=== PATIENT | male | born 1970 | race Caucasian/White ===

== ENCOUNTER → 2020-03-26 | Outpatient (CLI) | payer OTHER | LOC: MRI 13:19 | DX: M25.511 Pain in right shoulder (principal); M54.5 Low back pain; M47.816 Spondylosis without myelopathy or radiculopathy, lumbar region; M75.101 Unspecified rotator cuff tear or rupture of right shoulder, not specified as traumatic; S46.811A Strain of other muscles, fascia and tendons at shoulder and upper arm level, right arm, initial encounter; X58.XXXA Exposure to other specified factors, initial encounter | CPT/HCPCS: 72072; 72110; 73221 ==

== ENCOUNTER → 2020-04-08 | Outpatient (CLI) | payer OTHER | LOC: KOH-I 11:15 | DX: M25.521 Pain in right elbow (principal); M54.5 Low back pain; M25.421 Effusion, right elbow; M47.816 Spondylosis without myelopathy or radiculopathy, lumbar region | CPT/HCPCS: 72148; 73221 ==

== ENCOUNTER → 2021-09-13 | Outpatient (CLI) | payer OTHER, BC | LOC: EMI 08:10 | DX: G62.9 Polyneuropathy, unspecified (principal) | CPT/HCPCS: 72141 ==